=== PATIENT | female | born 1990 | race Caucasian/White ===

== ENCOUNTER 2024-01-23 21:45 | Outpatient (CLI) | payer OTHER ==
[~2024-01-23] VITALS: Ht 170.2 cm; Wt 101.8 kg
--- NOTE | 2024-01-23 21:50 | NUR ---
Presents to L&D unit, ambulatory, accompanied by spouse. Patient c/o small spot of blood this am when she went to bathroom, nothing since. C/O "constant cramping, tightening." Denies leaking of fluid. Reports positive movement. Denies intercourse in last 48 hours.
[2024-01-23 22:00] VITALS: BP 120/69; PULSE 76; TEMP 98
[2024-01-23] MEDS ORDERED: LR 1,000 ML IV PRN (22:15)
[2024-01-23] MEDS ORDERED: Acetaminophen 500 MG TAB PO PRN (22:15)
[2024-01-23] MEDS ORDERED: diphenhydrAMINE 25 MG CAP PO ONE (22:15)
[2024-01-23 22:30] VITALS: BP 127/67; PULSE 75
[2024-01-23] MEDS ORDERED: PRENATAL TABLET PO (22:30)
[2024-01-23] MEDS ORDERED: D3-5050000 IU PO (22:31)
[2024-01-23] MEDS ORDERED: PROBIOTIC ACID1 EAC3 PO (22:31)
--- NOTE | 2024-01-23 22:34 | NUR ---
Repositioned from left lateral to right lateral. US repositioned.
[2024-01-23 22:52] VITALS: BP 116/63; PULSE 89
== END 2024-01-23 23:08 | disposition home or self-care (01) ==
LOC: LDRO 21:45 → LDR 21:50 → LDRO 23:08
DX: O26.893 Other specified pregnancy related conditions, third trimester (principal); R25.2 Cramp and spasm; Z3A.39 39 weeks gestation of pregnancy
CPT/HCPCS: OP

== ENCOUNTER 2024-01-24 18:37 | Outpatient (CLI) | payer SELFPAY ==
[~2024-01-24] VITALS: Ht 170.2 cm; Wt 101.8 kg
[~2024-01-24 18:37] MED LIST: D3-5050000 IU PO; PRENATAL TABLET PO; PROBIOTIC ACID1 EAC3 PO
--- NOTE | 2024-01-24 18:50 | NUR ---
Ambulatory to unit for labor assessmnet, accompanied by spouse. Oriented to room, monitor, plan of care. Pt reports " I started having contractions yesterday. They are alot stronger now." Pt reports no LOF, some intermittent bloody show. SVE 2.
[2024-01-24 18:55] VITALS: BP 124/91; PULSE 100; TEMP 97.9
--- NOTE | 2024-01-24 18:55 | NUR ---
SVE with 1cm long cervix, external os loose 4-5 cm, internal os 2cm. Tornado tinged mucous, no frr fluid illicited with exam.
--- NOTE | 2024-01-24 19:00 | NUR ---
Pt to WL. loss of EFM tracing r/t position change and pt's body habitus. 1919 EFM not tracing r/t movement, pt's position, pt's body habitus.RN into room, monitors adjusted. FHT's briefly traced and then baby moves. 1949 To for EFM tracing
[2024-01-24] MEDS ORDERED: LR 1,000 ML IV PRN (19:15)
[2024-01-24 20:15] VITALS: BP 133/85; PULSE 77; TEMP 98
[2024-01-25] MEDS ORDERED: Influenza Virus Vaccine, Trivalent '24-25 0.5 ML SYRINGE IM SCH (09:00)
== END 2024-01-24 20:50 | disposition home or self-care (01) ==
LOC: LDRO 18:37
DX: O62.9 Abnormality of forces of labor, unspecified (principal); Z3A.39 39 weeks gestation of pregnancy

== ENCOUNTER 2024-01-25 11:14 | Inpatient (IN) | payer OTHER ==
[~2024-01-25] VITALS: Wt 102.7 kg
[2024-01-25] VITALS (27 sets, daily range): BP systolic 106–160; BP diastolic 57–95; PULSE 82–120; TEMP 98–98.2
[2024-01-25] MEDS ORDERED: LR 1,000 ML IV PRN ×2 (11:30→12:00)
[2024-01-25] MEDS ORDERED: LR 500 ML IV PRN (12:00)
[2024-01-25] MEDS ORDERED: LR 1,000 ML IV SCH (12:00)
[2024-01-25] MEDS ORDERED: diphenhydrAMINE 50 MG/ML 1 ML VIAL IV PRN (12:00)
[2024-01-25] MEDS ORDERED: LR & Oxytocin 500 ML IV SCH (12:00)
[2024-01-25] MEDS ORDERED: diphenhydrAMINE 25 MG CAP PO PRN (12:00)
[2024-01-25] MEDS ORDERED: Ondansetron 4 MG/2 ML VIAL IV PRN (12:00)
[2024-01-25] MEDS ORDERED: ePHEDrine 50 MG/10 ML VIAL IV PRN (12:00)
[2024-01-25] MEDS ORDERED: Naloxone 0.4 MG/ML VIAL IV PRN ×2 (12:00→18:45)
[2024-01-25] MEDS ORDERED: LR 1,000 ML IV ONE (12:00)
[2024-01-25 12:09] LABS: BASO % 0.2 % (0.0-2.0); GRAN # 15.8 K/mm3 (1.4-6.5); GRAN % 85.1 % (42.2-75.2); HEMOGLOBIN 11.8 g/dl (12.5-16.0); LYMPH # 1.5 K/mm3 (1.2-3.4); MEAN CELL VOLUME 83 fl (80.0-100.0); MEAN CORPUSCULAR HEMOGLOBIN 28 pg (27-31); MEAN CORPUSCULAR HGB CONC 33 g/dl (33.0-37.0); MEAN PLATELET VOLUME 10.2 fl (7.4-10.4); MONO # 1.1 K/mm3 (0.1-0.6); MONO % 6.1 % (1.7-9.3); PLATELET COUNT 394 K/mm3 (130-400); RED BLOOD COUNT 4.28 M/mm3 (4.10-5.30); REDCELL DISTRIBUTION WIDTH-CV 13.3 % (11.5-14.5)
[2024-01-25 12:10] LABS: HEMATOCRIT 35.7 % (37.0-47.0)
[2024-01-25] MEDS ORDERED: ROPivacaine PF 0.2% 200 ML IV ONE (12:19)
--- NOTE | 2024-01-25 12:39 | NUR ---
1130 PT ARRIVES ON UNIT COMPLAINING OF INCREASINGLY PAINFUL CONTRACTIONS SINCE LAST NIGHT AND PT STATES SHE THINKS HER WATER MIGHT HAVE BROKEN AT 11 TODAY. PT STATES IT WAS CLEAR FLUID. PT DENIES VB, DFM, OR ANY OTHER COMPLAINTS AT THIS TIME. RN DISCUSSES POC AND PT VERBALIZES UNDERSTANDING AND HAS NO QUESTIONS AT THIS TIME.
--- NOTE | 2024-01-25 12:41 | NUR ---
1138 CAR MESA UPDATED ON PT ARRIVAL, HX, COMPLAINTS, SVE, AMNITRACE RESULTS, FHTS, CTX PATTERN. ORDERS TO ADMIT PT TO LABOR AND DELIVERY AND GET PT EPIDURAL IF DESIRED. RN JESSIACVO.
--- NOTE | 2024-01-25 13:32 | NUR ---
SALES NEGOTIATOR AND RN BEDSIDE DURING PROCEDURE. PT TOLERATED WELL.
[2024-01-25] MEDS ORDERED: Loratadine 10 MG TAB PO PRN (18:15)
[2024-01-25] MEDS ORDERED: Magnes Hydrox (MOM) 80 MG/ML 30 ML CUP PO PRN (18:15)
--- NOTE | 2024-01-25 18:29 | NUR ---
CAR EN ROUTE TO BEDSIDE. RN REMAINS BEDSIDE ALONGSIDE ASSISTANT PROFESSOR OF PSYCHOLOGY. PT ON LEFT SIDE .
--- NOTE | 2024-01-25 18:34 | NUR ---
SPONTANEOUS VAGINAL DELIVERY OF VIABLE MALE INFANT. CAR MESA AND RN X3 BEDSIDE. PATIENT TOLERATED DELIVERY WELL.
[2024-01-25] MEDS ORDERED: oxyCODONE 5 MG TAB PO PRN (18:45)
[2024-01-25] MEDS ORDERED: Ibuprofen 800 MG TAB PO SCH (18:45)
[2024-01-25] MEDS ORDERED: Acetaminophen 500 MG TAB PO SCH (18:45)
[2024-01-25] MEDS ORDERED: Tdap Vaccine 0.5 ML SYRINGE IM SCH (18:45)
[2024-01-25] MEDS ORDERED: Phenylephrine/Mineral Oil/Petrolatum 57 GM TUBE RC PRN (18:45)
[2024-01-25] MEDS ORDERED: Witch Hazel 50% Pads Bulk TUB TP PRN (18:45)
[2024-01-25] MEDS ORDERED: Mag/Al Hydrox/Simeth Susp 30 ML CUP PO PRN (18:45)
[2024-01-25] MEDS ORDERED: Measles/Mumps/Rubella Virus Vaccine Live w Diluent 0.5 ML VIAL SQ SCH (18:45)
--- NOTE | 2024-01-25 20:00 | NUR ---
Epidural catheter dc'd. IV to INt. Up to bathroom with steady gait. Voids good amount, prforms own pericare after instructions. new ice pack, panties and clean gown. Ambulates to room with steady gait.
[2024-01-25] MEDS ORDERED: traZODone 50 MG TAB PO PRN (21:00)
[2024-01-26 08:00] VITALS: BP 110/74; PULSE 82
[2024-01-26] MEDS ORDERED: Sennosides/Docusate 8.6-50 MG TAB PO SCH (08:00)
[2024-01-26] MEDS ORDERED: IBU800 M1 PO (08:48)
[2024-01-26] MEDS ORDERED: Rho(D) Imm Globulin 1,500 UNITS (300 MCG)/2 ML SYRINGE IV\\IM SCH (10:00)
[2024-01-26 16:30] VITALS: BP 110/62; PULSE 80
[2024-01-26 20:15] VITALS: BP 125/68; PULSE 70; TEMP 98
[2024-01-27 07:02] VITALS: BP 110/64; PULSE 75; TEMP 98.4
--- NOTE | 2024-01-27 09:49 | NUR ---
Initial visit; Parents thanked Duplication Specialist for looking in on them and offering congratulations and God's blessings to their family for the of their son. Duplication Specialist let them know how pleased she was to meet them and thanked them for choosing [facility].
== END 2024-01-27 11:51 | disposition home or self-care (01) | DRG 807 ==
LOC: LDRO 11:14 → LDR 11:57 → OB 21:53
PROVIDERS: ADMIT Obstetrics & Gynecology
PROC: 10E0XZZ Delivery of Products of Conception, External Approach (ICD-10-PCS; principal; 2024-01-25)
PROC: 0KQM0ZZ Repair Perineum Muscle, Open Approach (ICD-10-PCS; 2024-01-25)
PROC: 10907ZC Drainage of Amniotic Fluid, Therapeutic from Products of Conception, Via Natural or Artificial Opening (ICD-10-PCS; 2024-01-25)
DX: O70.1 Second degree perineal laceration during delivery (principal); Z37.0 Single live birth; Z3A.39 39 weeks gestation of pregnancy; O69.81X0 Labor and delivery complicated by cord around neck, without compression, not applicable or unspecified; O99.214 Obesity complicating childbirth
CPT/HCPCS: J2590; J2791; J2795; J7120